=== PATIENT | male | born 1960 | race African-American/Black ===

== ENCOUNTER 2020-01-29 16:29 | Emergency (ER) | payer OTHER ==
[~2020-01-29] VITALS: Ht 188 cm; Wt 77.3 kg
[2020-01-29] MEDS ORDERED: RANI150T7 PO (16:35)
[2020-01-29] MEDS ORDERED: METF-911 PO (16:35)
[2020-01-29] MEDS ORDERED: TRAZ-252 PO (16:35)
[2020-01-29] MEDS ORDERED: DIVA125T32 PO (16:35)
[2020-01-29] MEDS ORDERED: RANI50VI4 IVP (16:35)
[2020-01-29] MEDS ORDERED: SIMV-259 PO (16:37)
[2020-01-29] MEDS ORDERED: AMLO5TAB9 PO (16:37)
[2020-01-29] MEDS ORDERED: TAMS-13 PO (16:37)
[2020-01-29] MEDS ORDERED: LISI-661 PO (16:37)
[2020-01-29 18:45] VITALS: BP 124/72
== END 2020-01-29 18:45 | disposition home or self-care (01) ==
LOC: EMS 16:41
DX: J06.9 Acute upper respiratory infection, unspecified (principal); E78.00 Pure hypercholesterolemia, unspecified; F41.9 Anxiety disorder, unspecified; E11.9 Type 2 diabetes mellitus without complications; I11.9 Hypertensive heart disease without heart failure; Z03.818 Encounter for observation for suspected exposure to other biological agents ruled out
CPT/HCPCS: 87635

== ENCOUNTER 2024-01-23 10:36 | Emergency (ER) | payer OTHER ==
[~2024-01-23] VITALS: Ht 177.8 cm; Wt 63.6 kg
[~2024-01-23 10:36] MED LIST: AMLO-257 PO; DIVA125T32 PO; LISI-893 PO; METF-81 PO; SIMV-259 PO; TAMS0.4C94 PO; TRAZ-252 PO
[2024-01-23 10:53] VITALS: BP 151/75; PULSE 90; RESP 18; TEMP 97.9
[2024-01-23 11:22] LABS: BASOPHILS % (AUTO) 0.3 % (0.0-2.0); EOSINOPHILS % (AUTO) 0 % (1.0-6.0); HEMATOCRIT 42.7 % (41-53); HEMOGLOBIN 14.2 g/dL (13.5-17.5); LYMPHOCYTES # (AUTO) 1.4 K/uL (1.0-4.8); LYMPHOCYTES % (AUTO) 6.4 % (22.0-44.0); MEAN CORPUSCULAR HEMOGLOBIN 30.1 pg (26.0-34.0); MEAN CORPUSCULAR HGB CONC 33.3 G/dL (31.0-37.0); MEAN CORPUSCULAR VOLUME 90 fL (80-100); MONOCYTES # (AUTO) 2.6 K/uL (0.1-1.0); MONOCYTES % (AUTO) 12.1 % (2.0-9.0); NEUTROPHILS # (AUTO) 17.3 K/uL (1.8-7.7); NEUTROPHILS % (AUTO) 81.2 % (40.0-70.0); PLATELET COUNT (AUTO) 249 K/uL (150-450); RED BLOOD CELL COUNT(AUTO) 4.73 MIL/uL (4.50-5.90); RED CELL DISTRIBUTION WIDTH 16.3 % (11.5-14.5); WHITE BLOOD COUNT (AUTO) 21.3 K/uL (4.5-11.0)
[2024-01-23 11:33] LABS: CALCIUM, TOTAL 9.6 mg/dL (8.8-10.5); CREATININE 2.01 mg/dL (0.60-1.30); POTASSIUM 4.3 mmol/L (3.5-5.1)
[2024-01-23 11:51] LABS: ALBUMIN 3.5 g/dL (3.4-5.0); BILIRUBIN,TOTAL 0.6 mg/dL (0.1-1.0); TOTAL PROTEIN, SERUM 7.4 g/dL (6.4-8.2)
== END 2024-01-23 13:32 | disposition left against medical advice (07) ==
LOC: EMS 10:36
DX: R47.81 Slurred speech (principal); E11.9 Type 2 diabetes mellitus without complications; E78.00 Pure hypercholesterolemia, unspecified; I10 Essential (primary) hypertension; F41.9 Anxiety disorder, unspecified; K21.9 Gastro-esophageal reflux disease without esophagitis
CPT/HCPCS: 71045; 80053; 85025; 93005; 99285; 36415-L1; 36415-TC